=== PATIENT | female | born 1970 | race Caucasian/White ===

== ENCOUNTER 2021-09-14 07:22 | Day surgery (SDC) | payer BC ==
[2021-09-04 16:00] VITALS: BMI 22.0
[2021-09-14] MEDS ORDERED: MIDAZOLAM HCL 2 MG/2 ML SINGLE DOSE VIAL ONE (08:47)
[2021-09-14] MEDS ORDERED: LIDOCAINE HCL 2% (20ML MULTI-DOSE VIAL) ONE (09:07)
[2021-09-14] MEDS ORDERED: ONDANSETRON 4 MG/2 ML VIAL ONE (09:22)
[2021-09-14] MEDS ORDERED: DEXAMETHASONE SOD PHOSPHATE 4 MG/1 ML VIAL ONE (09:22)
[2021-09-14] MEDS ORDERED: ceFAZolin SODIUM 1 GM VIAL ONE (09:22)
[2021-09-14] MEDS ORDERED: PROPOFOL 20 ML ONE ×2 (09:35→09:55)
[2021-09-14 10:41] VITALS: TEMP 97.7
[2021-09-14] MEDS ORDERED: oxyCODONE HCL 5 MG TABLET PO PRN (12:02)
[2021-09-14 12:38] VITALS: BP 102/68; PULSE 66
== END 2021-09-14 11:15 | disposition home or self-care (01) ==
LOC: FASU 07:22
PROVIDERS: ATTEND Orthopaedic Surgery
PROC: 0JBK0ZZ Excision of Left Hand Subcutaneous Tissue and Fascia, Open Approach (ICD-10-PCS; principal; 2021-09-14 09:37)
DX: D21.12 Benign neoplasm of connective and other soft tissue of left upper limb, including shoulder (principal)
CPT/HCPCS: 88304-TC

== ENCOUNTER 2022-06-14 09:05 | Day surgery (SDC) | payer BC ==
[2022-06-11 16:32] VITALS: BMI 21.7
[2022-06-14 09:18] VITALS: RESP 18
[2022-06-14] MEDS ORDERED: oxyCODONE HCL 5 MG TABLET PO PRN (10:31)
[2022-06-14] MEDS ORDERED: ONDANSETRON 4 MG/2 ML VIAL IVPUSH PRN (10:31)
[2022-06-14] MEDS ORDERED: LACTATED RINGERS SOLUTION 1,000 ML IV SCH (10:45)
[2022-06-14] MEDS ORDERED: LIDOCAINE HCL 1%, 10 MG/ML (20ML VIAL) ONE (11:03)
[2022-06-14] MEDS ORDERED: BUPIVACAINE HCL/PF 0.25% (2.5MG/ML) 10 ML VIAL ONE (11:03)
[2022-06-14] MEDS ORDERED: PROPOFOL 40 ML ONE (11:21)
[2022-06-14] MEDS ORDERED: MIDAZOLAM HCL 2 MG/2 ML SINGLE DOSE VIAL ONE (11:21)
[2022-06-14] MEDS ORDERED: LIDOCAINE HCL/PF 2% SDV 5ML VIAL ONE (11:21)
[2022-06-14] MEDS ORDERED: DEXAMETHASONE SOD PHOSPHATE 4 MG/1 ML VIAL ONE (11:24)
[2022-06-14] MEDS ORDERED: ceFAZolin SODIUM 1 GM VIAL ONE (11:24)
[2022-06-14] MEDS ORDERED: KETOROLAC TROMETHAMINE 30 MG/1 ML VIAL ONE (11:33)
[2022-06-14] MEDS ORDERED: ONDANSETRON 4 MG/2 ML VIAL ONE (11:33)
[2022-06-14] MEDS ORDERED: PROPOFOL 20 ML ONE ×2 (11:37→11:43)
[2022-06-14 12:36] VITALS: TEMP 97.9
[2022-06-14 13:02] VITALS: BP 107/59; PULSE 67
== END 2022-06-14 13:25 | disposition home or self-care (01) ==
LOC: FASU 09:05
PROVIDERS: ATTEND Orthopaedic Surgery
PROC: 0JBK0ZX Excision of Left Hand Subcutaneous Tissue and Fascia, Open Approach, Diagnostic (ICD-10-PCS; 2022-06-14)
PROC: 0LB80ZZ Excision of Left Hand Tendon, Open Approach (ICD-10-PCS; principal; 2022-06-14 11:41)
DX: M67.442 Ganglion, left hand (principal); M79.89 Other specified soft tissue disorders
CPT/HCPCS: 88304-TC; 88305-TC